=== PATIENT | female | born 1980 | race Caucasian/White ===

== ENCOUNTER 2018-06-17 11:25 | Emergency (ER) | payer MEDICAID ==
[~2018-06-17] VITALS: Ht 157.5 cm; Wt 80.0 kg
[2018-06-17] MEDS ORDERED: KETOROLAC 60MG/2ML VIAL IM ONE (14:30)
[2018-06-17 14:59] VITALS: BP 136/86
== END 2018-06-17 15:01 | disposition home or self-care (01) ==
LOC: EDBD 11:25 → ER 11:25
DX: M54.6 Pain in thoracic spine (principal); M62.830 Muscle spasm of back
CPT/HCPCS: 96372; 99283; J1885